=== PATIENT | female | born 1965 | race Caucasian/White ===

== ENCOUNTER 2016-11-26 13:48 | Emergency (ER) | payer OTHER ==
[~2016-11-26] VITALS: Ht 167.6 cm; Wt 87.4 kg
[~2016-11-26 13:48] MED LIST: ATARAX,VISTARIL25 MG PO; AZITHROMYCIN250 MG PO; CHERATUSSIN AC473 ML PO; CLEOCIN300 MG PO; CYCLOBENZAPRINE10 MG PO; FLEXERIL5 MG PO; KEFLEX500 MG PO; MEDROL DOSEPAK4 MG PO; MOBIC7.5 MG PO; NAPROSYN500 MG PO; NORCO 5/3251 TABLET PO; PERCOCET 5/31 TABLET PO; PREDNISONE20 MG PO; SIMVASTATIN20 MG PO; SYNTHROID50 MCG PO; TYLENOL WITH C1 EACH PO; ULTRACET1 TABLET PO; VALIUM5 MG PO; WESTCORT15 G1 TP; no home
[2016-11-26 15:21] LABS: EOSINOPHIL (%) 2.8 % (0-5); EOSINOPHIL COUNT 0.2 K/uL (0-0.3); HEMATOCRIT 38.9 % (36.0-46.0); IMMATURE GRANULOCYTE (%) 0.2 % (0.0-0.7); IMMATURE GRANULOCYTE COUNT 0.1 K/uL; LYMPHOCYTE COUNT 1.9 K/uL (1.0-2.8); MCH 30.2 PG (29.0-34.0); MCHC 35.5 G/DL (30.0-36.0); MCV 85.1 FL (83-99); MONOCYTE (%) 6.1 % (3-12); MONOCYTE COUNT 0.3 K/uL (0-0.8); NEUTROPHIL (%) 56.3 % (45-76); NEUTROPHIL COUNT 3.1 K/uL (1.8-6.4); PLATELET COUNT 171 K/uL (156-360); RBC DIS.WIDTH-CV 13.2 % (11.8-14.6); RED BLOOD COUNT 4.57 M/uL (3.80-5.20); WHITE BLOOD COUNT 5.4 K/uL (4.1-10.2)
[2016-11-26 15:33] LABS: CHLORIDE 108 mEq/L (99-109); POTASSIUM 4.1 mEq/L (3.7-5.4); SODIUM 142 mEq/L (136-147)
[2016-11-26 15:34] LABS: ADD MIUA? YES; BILIRUBIN NEGATIVE; BLOOD NEGATIVE; COLOR YELLOW ((YELLOW)); GLUCOSE (STRIP) NEGATIVE; KETONES NEGATIVE; LEUKOCYTES NEGATIVE; NITRITE NEGATIVE; PROTEIN (STRIP) TRACE; SPECIFIC GRAVITY 1.025 (1.000-1.030)
[2016-11-26 15:35] LABS: GLUCOSE 92 mg/dL (70-99)
[2016-11-26 15:36] LABS: ANION GAP 12 MEQ/L (2-14)
[2016-11-26 15:37] LABS: TOTAL BILIRUBIN 0.6 mg/dL (0.0-1.0)
[2016-11-26 15:38] LABS: ALKALINE PHOSPHATASE 66 IU/L (3-129)
[2016-11-26 15:39] LABS: GFR ESTIMATE (CALCULATED) > 59 mL/min/
[2016-11-26 15:40] LABS: UREA NITROGEN (BUN) 9 mg/dL (9-23)
[2016-11-26 15:42] LABS: LIPASE 24 U/L (1.0-51.0)
[2016-11-26 16:14] LABS: AMORPHOUS PHOSPHATE CRYSTALS 2+; BACTERIA RARE; CASTS NONE SEEN /LPF; CRYSTALS PRESENT; EPITHELIAL CELLS 1+; MUCUS NONE SEEN; RED BLOOD CELLS NONE SEEN /HPF (0-5); WHITE BLOOD CELLS NONE SEEN /HPF (0-5)
[2016-11-26] MEDS ORDERED: CARAFATE1 GM PO (16:43)
[2016-11-26] MEDS ORDERED: PEPCID20 MG PO (16:43)
[2016-11-26 16:56] VITALS: BP 137/84
== END 2016-11-26 16:58 | disposition home or self-care (01) ==
LOC: EME 13:48
PROVIDERS: Physician Assistant
DX: R10.13 Epigastric pain (principal); M54.5 Low back pain; K29.70 Gastritis, unspecified, without bleeding; I10 Essential (primary) hypertension
CPT/HCPCS: 80053; 81003; 83690; 85025; 99281; 99284